=== PATIENT | female | born 1975 | race Caucasian/White ===

== ENCOUNTER 2018-01-10 22:50 | Emergency (ER) | payer OTHER ==
[~2018-01-10] VITALS: Ht 167.6 cm; Wt 73.5 kg
[~2018-01-10 22:50] MED LIST: ALBUTEROL2.5 MG/31 INH; ALLEGRA-D 24 H1 EACH; AZITHROMYCIN 2250 MG PO; BENADRYL25 MG PO; CIPROFLOXACIN500 M1 PO; COMBIVENT INH; PREDNISONE 20 M20 M1 PO; PROAIR HFA8.5 GM IH; SINGULAIR 10 MG10 M1; SYMBICORT160 MCG/4.; ULTRAM 50MG TAB50 MG PO; VALIUM5 MG PO; VENTOLIN HFA 1818 GM
[2018-01-10] MEDS ORDERED: PREDNISONE 20 M20 M1 PO (23:49)
[2018-01-10] MEDS ORDERED: VENTOLIN HFA 1818 GM INH (23:49)
[2018-01-11 00:01] VITALS: BP 164/89
== END 2018-01-11 00:04 | disposition home or self-care (01) ==
LOC: M.ERS 22:50
DX: J45.901 Unspecified asthma with (acute) exacerbation (principal); Z88.6 Allergy status to analgesic agent; Z77.22 Contact with and (suspected) exposure to environmental tobacco smoke (acute) (chronic)

== ENCOUNTER 2018-02-23 05:26 | Emergency (ER) | payer OTHER ==
[~2018-02-23] VITALS: Ht 167.6 cm; Wt 76.2 kg
[~2018-02-23 05:26] MED LIST changes: +VENTOLIN HFA 1818 GM INH
[2018-02-23] MEDS ORDERED: CLARITIN10 M2 PO (05:33)
[2018-02-23] MEDS ORDERED: ALBUTEROL2.5 MG/31 INH (05:36)
[2018-02-23] MEDS ORDERED: IRON325 PO (05:36)
[2018-02-23 05:59] LABS: HEMATOCRIT 31.4 % (37.0-47.0); HEMOGLOBIN 9.5 gm/dL (12.0-15.0); MCH 20.5 pg (26.0-34.0); MCHC 30.2 g/dL (28.0-37.0); MCV 67.9 fL (80.0-100.0); MPV 6.7 fl. (7.2-11.1); NUCLEATED RBCS 0 /100WBC; PLATELET COUNT* 541 thou/uL (150-400); RBC 4.63 mil/uL (4.20-5.00); RDW-CV 19.2 % (10.5-14.5); WBC 8.6 thou/uL (4.0-11.0)
[2018-02-23 06:04] LABS: ANION GAP 8 mmol/L (7-16); BUN 14 mg/dL (7-18); CALCIUM 8.7 mg/dL (8.5-10.1); CHLORIDE 103 mmol/L (98-107); CO2 27 mmol/L (21-32); CREATININE 0.8 mg/dL (0.6-1.3); GLUCOSE 146 mg/dL (70-99); POTASSIUM 3.4 mmol/L (3.5-5.1); SODIUM 138 mmol/L (136-145)
[2018-02-23 06:15] LABS: ALBUMIN 3.6 g/dL (3.4-5.0); ALKALINE PHOSPHATASE 106 U/L (46-116); NT-PRO BRAIN NAT PEPTIDE 122 pg/mL (<300); SGOT 15 U/L (15-37); SGPT 23 U/L (30-65); TOTAL BILIRUBIN 0.3 mg/dL (<0.1-1.0); TOTAL PROTEIN 7.4 g/dL (6.4-8.2); TROPONIN-I LEVEL <0.06 ng/mL (<0.06)
[2018-02-23] MEDS ORDERED: PREDNISONE 10 M10 M1 PO (06:33)
[2018-02-23] MEDS ORDERED: DIFLUCAN200 MG PO (06:33)
[2018-02-23] MEDS ORDERED: AZITHROMYCIN 2250 MG PO (06:33)
[2018-02-23] MEDS ORDERED: ATIVAN1 MG PO (06:53)
[2018-02-23 06:54] LABS: ABSOLUTE EOSINOPHILS 0.9 thou/uL (0.0-0.7); ABSOLUTE LYMPHOCYTES 1.3 thou/uL (0.8-5.3); ABSOLUTE MONOCYTES 0.4 thou/uL (0.0-1.2); ABSOLUTE NEUTROPHILS 5.9 thou/uL (1.6-8.1); ANISOCYTOSIS 1+; PLATELET ESTIMATE INCREASED; POIKILOCYTOSIS 1+
[2018-02-23 06:55] VITALS: BP 147/83
--- NOTE | 2018-02-23 10:16 | EKG ---
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
== END 2018-02-23 06:55 | disposition home or self-care (01) ==
LOC: M.ERS 05:26
PROVIDERS: Emergency Medicine
DX: J45.909 Unspecified asthma, uncomplicated (principal); Z90.49 Acquired absence of other specified parts of digestive tract; Z88.6 Allergy status to analgesic agent; Z77.22 Contact with and (suspected) exposure to environmental tobacco smoke (acute) (chronic)